=== PATIENT | male | born 1970 | race African-American/Black ===

== ENCOUNTER 2018-01-08 11:56 | Emergency (ER) | payer BC ==
[~2018-01-08] VITALS: Ht 175.3 cm; Wt 86.2 kg
[2018-01-08] MEDS ORDERED: SYMBICORT160 MCG/4. INH (12:15)
[2018-01-08] MEDS ORDERED: VENTOLIN HFA 1818 GM INH (12:15)
[2018-01-08] MEDS ORDERED: NORFLEX100 MG PO (13:26)
[2018-01-08] MEDS ORDERED: NAPROSYN500 MG PO (13:26)
[2018-01-08 13:48] VITALS: BP 129/82
== END 2018-01-08 13:50 | disposition home or self-care (01) ==
LOC: ER 11:56
DX: S09.90XA Unspecified injury of head, initial encounter (principal); S16.1XXA Strain of muscle, fascia and tendon at neck level, initial encounter; V49.09XA Driver injured in collision with other motor vehicles in nontraffic accident, initial encounter; Y93.89 Activity, other specified; Y92.89 Other specified places as the place of occurrence of the external cause; Y99.8 Other external cause status